=== PATIENT | male | born 1975 | race African-American/Black ===

== ENCOUNTER 2022-11-29 21:46 | Emergency (ER) | payer SELFPAY ==
[~2022-11-29] VITALS: Ht 182.9 cm; Wt 83.9 kg
[2022-11-29] MEDS ORDERED: LIDOCAINE HCL 1% 20 ML VIAL TP ONE (22:15)
[2022-11-29] MEDS ORDERED: PHENYLEPHRINE IV 20 MG in IV DEXTROSE 5% 250 ML IV ONE (22:15)
[2022-11-29] MEDS ORDERED: TERBUTALINE SULFATE 1 MG/1 ML VIAL SQ ONE (22:15)
[2022-11-29] MEDS ORDERED: LIDOCAINE HCL 1% 20 ML VIAL ONE (22:39)
[2022-11-29] MEDS ORDERED: TERBUTALINE SULFATE 1 MG/1 ML VIAL ONE (22:39)
[2022-11-29] MEDS ORDERED: PHENYLEPHRINE 10 MG/1 ML VIAL ONE (22:39)
[2022-11-29 23:59] VITALS: BP 150/91; O2SAT 97
[2022-11-30] MEDS ORDERED: ACETAMINOPHEN ES 500 MG TABLET PO ONE
[2022-11-30] MEDS ORDERED: ACETAMINOPHEN ES 500 MG TABLET ONE
[2022-12-01] MEDS ORDERED: CEPH500C2 PO (14:22)
== END 2022-11-30 00:03 | disposition left against medical advice (07) ==
LOC: ER 21:46
DX: N48.30 Priapism, unspecified (principal)
CPT/HCPCS: 99283; 96372; J3490; J2370 ×2; J3105; J7060; A4606; A4663; A9150

== ENCOUNTER 2022-12-01 11:44 | Emergency (ER) | payer SELFPAY ==
[~2022-12-01] VITALS: Ht 182.9 cm; Wt 81.6 kg
[2022-12-01] MEDS ORDERED: LIDOCAINE HCL 1% 20 ML VIAL ONE ×2 (12:10→14:25)
[2022-12-01] MEDS ORDERED: TERBUTALINE SULFATE 1 MG/1 ML VIAL SQ ONE (12:15)
[2022-12-01] MEDS ORDERED: LIDOCAINE HCL 1% 20 ML VIAL IJ ONE ×2 (12:15→14:15)
[2022-12-01] MEDS ORDERED: TERBUTALINE SULFATE 1 MG/1 ML VIAL ONE (12:18)
[2022-12-01] MEDS ORDERED: NEOMY/BACITRA/POLYMYXIN B OINT UD PACKET TP ONE ×2 (12:57→13:00)
[2022-12-01] MEDS ORDERED: PHENYLEPHRINE IV 20 MG in IV DEXTROSE 5% 250 ML IV ONE (14:15)
[2022-12-01] MEDS ORDERED: CEPH500C2 PO (14:22)
[2022-12-01] MEDS ORDERED: CEphaleXIN 500 MG CAPSULE PO ONE (14:30)
[2022-12-01] MEDS ORDERED: CEphaleXIN 500 MG CAPSULE ONE (14:55)
[2022-12-01 16:32] VITALS: BP 125/99; TEMP 98.5; O2SAT 99
== END 2022-12-01 16:32 | disposition home or self-care (01) ==
LOC: ER 11:50
DX: S01.112A Laceration without foreign body of left eyelid and periocular area, initial encounter (principal); N48.30 Priapism, unspecified; Z79.899 Other long term (current) drug therapy; X58.XXXA Exposure to other specified factors, initial encounter; Y93.67 Activity, basketball; Y92.89 Other specified places as the place of occurrence of the external cause; Y99.8 Other external cause status
CPT/HCPCS: A4606; A4663; J3105; J3490; J7060